=== PATIENT | female | born 1995 | race American Indian/Alaskan Native ===

== ENCOUNTER 2018-12-22 21:54 | Emergency (ER) | payer OTHER ==
[2018-12-22 23:36] VITALS: BP 106/63
[2018-12-23 00:25] LABS: Basophils % (Auto) 0.3 % (0.0-1.8); Eosinophils # (Auto) 0.1 K/mm3 (0.0-0.4); Eosinophils % (Auto) 0.8 % (0.0-4.3); Hematocrit 40.8 % (30.3-42.9); Hemoglobin 13.9 gm/dl (10.1-14.3); Lymphocytes # (Auto) 1.7 K/mm3 (1.2-5.4); Mean Corpuscular HGB Conc 34 % (30-34); Mean Corpuscular Volume 94 fl (79-97); Monocytes # (Auto) 0.6 K/mm3 (0.0-0.8); Monocytes % (Auto) 5.4 % (0.0-7.3); Platelet Count 194 K/mm3 (140-440); Red Blood Count 4.36 M/mm3 (3.65-5.03); Red Cell Distribution Width 12.7 % (13.2-15.2)
[2018-12-23 00:48] LABS: Bilirubin,Urine NEG (Negative); Blood,Urine NEG (Negative); Color,Urine Yellow (Yellow); Hyaline Casts,Urine 1 /LPF; Mucus,Urine 1+ /HPF; Protein,Urine <15 mg/dL mg/dL (Negative); Urobilinogen,Urine < 2.0 mg/dL (<2.0)
[2018-12-23 00:54] LABS: Alanine Aminotransferase 9 units/L (7-56); Albumin 4.2 g/dL (3.9-5); BUN/Creatinine Ratio 19; Blood Urea Nitrogen 13 mg/dL (7-17); Calcium 8.9 mg/dL (8.4-10.2); Hemolysis Index 7
[2018-12-23 00:56] LABS: HCG Qualitative,Urine Negative (Negative)
--- NOTE | 2018-12-23 01:20 | Emergency Department Report ---
ED Syncope HPI - General Chief Complaint: Syncope Stated Complaint: PASSED OUT Time Seen by Provider: 12/22/18 22:12 - History of Present Illness Initial Comments: 23-year-old -German female states that she passed out at work. Patient denies any pain or nausea no vomiting no chest pain no dizziness no nausea no vomiting or abdominal pain no shortness of breath. No change of vision. Patient reports this has happened several times in the past. A sugar diagnostic past medical history currently takes no medications on a daily basis and has no known drug allergies. Timing/Prior Episodes: recent history Precipitating Factors: Positive: none Context: standing Current Symptoms: back to normal. denies: blurred vision, chest pain, diaphoresis, dizziness, headache, injury, lightheadedness, loss of bladder control, loss of bowel control, motionless, nausea, weak/absent pulse, weakness - Related Data Allergies/Adverse Reactions: Allergies No Known Allergies Allergy (Verified 12/22/18 21:59) ED Review of Systems ROS: Stated complaint: PASSED OUT Other details as noted in HPI Comment: All other systems reviewed and negative ED Past Medical Hx - Social History Smoking Status: Never Smoker ED Physical Exam - General Limitations: No Limitations General appearance: alert, in no apparent distress - Head Head exam: Present: atraumatic, normocephalic - Eye Eye exam: Present: normal appearance - ENT ENT exam: Present: mucous membranes moist - Neck Neck exam: Present: normal inspection - Respiratory Respiratory exam: Present: normal lung sounds bilaterally. Absent: respiratory distress - Cardiovascular Cardiovascular Exam: Present: regular rate, normal rhythm. Absent: systolic murmur, diastolic murmur, rubs, gallop - GI/Abdominal GI/Abdominal exam: Present: soft, normal bowel sounds - Extremities Exam Extremities exam: Present: normal inspection - Back Exam Back exam: Present: normal inspection - Neurological Exam Neurological exam: Present: alert, oriented X3 - Expanded Neurological Exam Expanded Cranial nerves: EOM's Intact: Normal, Gag Reflex: Normal, Tongue Deviation: Normal, Nystagmus: Normal, Facial Sensation: Normal, Facial Palsy with Forehead Movement: Normal, Facial Palsy without Forehead Movement: Normal Cerebellar function: Finger to Nose: Normal, Heel to [place]: Normal, Romberg: Normal Upper motor neuron: Jay Neglect: Normal, Pronator Drift: Normal, Babinski Sign: Normal, Sensory Extinction: Normal Sensory exam: Upper Extremity Light Touch: Normal, Upper Extremity Pin Prick: Normal, Upper Extremity Temperature: Normal, UE 2 Point Discrimination: Normal, Lower Extremity Light Touch: Normal, Lower Extremity Pin Prick: Normal, Lower Extremity Temperature: Normal, LE 2 Point Discrimination: Normal Motor strength exam: RUE: 4, LUE: 4, RLE: 4, LLE: 4 Best Eye Response ([place]): (4) open spontaneously Best Motor Response ([place]): (6) obeys commands Best Verbal Response ([place]): (5) oriented Gokul Total: 15 - Psychiatric Psychiatric exam: Present: normal affect, normal mood - Skin Skin exam: Present: warm, dry, intact, normal color. Absent: rash ED Course Vital Signs 12/22/18 12/22/18 21:57 23:31 Temperature 98.4 F Pulse Rate 107 H 83 Respiratory 16 16 Rate Blood Pressure 99/70 Blood Pressure 106/63 [Right] O2 Sat by Pulse 99 100 Oximetry ED Medical Decision Making - Lab Data Result diagrams: 12/22/18 00:15 12/22/18 00:15 - Medical Decision Making 23-year-old female comes in for reported passing out at work. Patient does have several episodes of this and recent past. It was noted the patient's blood sugar was 46 oral labs. Repeat blood sugar was 108. Patient has no other complaints reports that she feels fine. We'll refer patient to her primary care provider to have further evaluation. Critical care attestation.: If time is entered above; I have spent that time in minutes in the direct care of this critically ill patient, excluding procedure time. ED Disposition Clinical Impression: Hypoglycemia, Syncopal episodes Disposition: -01 TO HOME OR SELFCARE Is pt being admited?: No Does the pt Need Aspirin: No Condition: Stable Instructions: Syncope (ED) Additional Instructions: Please be sure to eat 3 meals and 2 snacks. Follow-up which are primary care provider or follow up with a provider there has been listed below failure convenience. Referrals: PRIMARY CARE, [Primary Care Provider] - 3-5 Days [facility] [Outside] - 3-5 Days [facility] [Outside] - 3-5 Days Forms: Work/School Release Form(ED)
== END 2018-12-23 01:45 | disposition home or self-care (01) ==
LOC: ED 21:54
DX: E16.2 Hypoglycemia, unspecified (principal)
CPT/HCPCS: 36415; 80053; 81001; 81025; 82962; 85025; 93005; 93010; 99283